=== PATIENT | female | born 1995 | race African-American/Black ===

== ENCOUNTER 2017-12-30 20:15 | Emergency (ER) | payer OTHER ==
[~2017-12-30] VITALS: Ht 154.9 cm; Wt 63.5 kg
[2017-12-30 21:12] LABS: HEMATOCRIT 39.8 % (36.0-46.0); HEMOGLOBIN 13.8 G/DL (11.9-15.5); MCH 30.5 PG (29.0-34.0); MCHC 34.7 G/DL (30.0-36.0); MCV 88.1 FL (83-99); PLATELET COUNT 241 K/uL (156-360); RBC DIS.WIDTH-CV 13.2 % (11.8-14.6); RBC DIS.WIDTH-SD 42.3 % (39-53); RED BLOOD COUNT 4.52 M/uL (3.80-5.20); WHITE BLOOD COUNT 10.2 K/uL (4.1-10.2)
[2017-12-30 21:18] LABS: ALBUMIN 4.5 g/dL (3.2-4.8); CHLORIDE 104 mEq/L (99-109); POTASSIUM 3.9 mEq/L (3.7-5.4); SODIUM 139 mEq/L (136-147)
[2017-12-30 21:21] LABS: GLUCOSE 86 mg/dL (70-99); TOTAL PROTEIN 7.3 g/dL (6.4-8.3)
[2017-12-30 21:22] LABS: TOTAL BILIRUBIN 0.5 mg/dL (0.0-1.0)
[2017-12-30 21:24] LABS: ALKALINE PHOSPHATASE 63 IU/L (3-129); CREATININE 0.8 mg/dL (0.6-1.3); GFR ESTIMATE (CALCULATED) > 59 mL/min/
[2017-12-30 21:25] LABS: UREA NITROGEN (BUN) 9 mg/dL (9-23)
[2017-12-30 21:26] LABS: AST (GOT) 19 IU/L (2-34)
[2017-12-30 21:27] LABS: ALT (GPT) 8 IU/L (3-49)
[2017-12-30 21:28] LABS: LIPASE 41 U/L (1.0-51.0)
[2017-12-30 21:33] LABS: QUANTITATIVE HCG < 4.0 MIU/ML
[2017-12-30 21:47] LABS: APPEARANCE CLEAR ((CLEAR)); BILIRUBIN NEGATIVE; BLOOD NEGATIVE; COLOR YELLOW ((YELLOW)); GLUCOSE (STRIP) NEGATIVE; KETONES 5; LEUKOCYTES TRACE; NITRITE NEGATIVE; PROTEIN (STRIP) NEGATIVE; SPECIFIC GRAVITY 1.016 (1.000-1.030); UROBILINOGEN 0.2 MG/DL (0.2-1.0)
[2017-12-30 21:50] LABS: BACTERIA NONE SEEN /HPF; EPITHELIAL CELLS 1+ /HPF; MUCUS TRACE /LPF; RED BLOOD CELLS 0-5 /HPF (0-5); UCUL ADDED? NO; WHITE BLOOD CELLS 0-5 /HPF (0-5)
[2017-12-30] MEDS ORDERED: DEXILANT30 MG PO (22:21)
[2017-12-30 22:31] VITALS: BP 125/71
== END 2017-12-30 22:31 | disposition home or self-care (01) ==
LOC: EME 20:15
DX: K27.9 Peptic ulcer, site unspecified, unspecified as acute or chronic, without hemorrhage or perforation (principal); R10.13 Epigastric pain; F17.200 Nicotine dependence, unspecified, uncomplicated
CPT/HCPCS: 76705; 80053; 81003; 83690; 84702; 85027; 99281; 99284

== ENCOUNTER 2018-02-22 17:02 | Emergency (ER) | payer OTHER ==
[~2018-02-22 17:02] MED LIST: DEXILANT30 MG PO
[2018-02-23] MEDS ORDERED: TYLENOL WITH C1 EACH PO (08:03)
== END 2018-02-22 17:12 | disposition left against medical advice (07) ==
LOC: EME 17:02
DX: S69.91XA Unspecified injury of right wrist, hand and finger(s), initial encounter (principal); Z53.21 Procedure and treatment not carried out due to patient leaving prior to being seen by health care provider

== ENCOUNTER 2018-02-23 05:27 | Emergency (ER) | payer OTHER ==
[~2018-02-23] VITALS: Ht 154.9 cm; Wt 62.9 kg
[2018-02-23] MEDS ORDERED: TYLENOL WITH C1 EACH PO (08:03)
[2018-02-23 08:10] VITALS: BP 95/65
== END 2018-02-23 08:13 | disposition home or self-care (01) ==
LOC: EME 05:27
DX: S60.211A Contusion of right wrist, initial encounter (principal); S60.221A Contusion of right hand, initial encounter; Y09 Assault by unspecified means; F17.200 Nicotine dependence, unspecified, uncomplicated
CPT/HCPCS: 73110; 73130; 99281; 99283

== ENCOUNTER 2018-03-14 15:17 | Emergency (ER) | payer OTHER ==
[~2018-03-14] VITALS: Ht 154.9 cm; Wt 62.6 kg
[~2018-03-14 15:17] MED LIST changes: +TYLENOL WITH C1 EACH PO
[2018-03-14 16:17] LABS: BASOPHIL (%) 0.5 % (0-1); EOSINOPHIL (%) 1.2 % (0-5); EOSINOPHIL COUNT 0.1 K/uL (0-0.3); HEMATOCRIT 40.8 % (36.0-46.0); HEMOGLOBIN 14.3 G/DL (11.9-15.5); IMMATURE GRANULOCYTE (%) 0.4 % (0.0-0.7); LYMPHOCYTE (%) 26.6 % (15-42); MCH 31.1 PG (29.0-34.0); MCV 88.7 FL (83-99); MONOCYTE (%) 5.9 % (3-12); MONOCYTE COUNT 0.5 K/uL (0-0.8); NEUTROPHIL (%) 65.4 % (45-76); PLATELET COUNT 219 K/uL (156-360); RBC DIS.WIDTH-CV 11.9 % (11.8-14.6); WHITE BLOOD COUNT 7.6 K/uL (4.1-10.2)
[2018-03-14 16:33] LABS: ALBUMIN 4.6 g/dL (3.2-4.8); CHLORIDE 106 mEq/L (99-109); POTASSIUM 4.2 mEq/L (3.7-5.4); SODIUM 140 mEq/L (136-147)
[2018-03-14 16:36] LABS: GLUCOSE 84 mg/dL (70-99); TOTAL PROTEIN 7.2 g/dL (6.4-8.3)
[2018-03-14 16:38] LABS: TOTAL BILIRUBIN 0.9 mg/dL (0.0-1.0)
[2018-03-14 16:39] LABS: ALKALINE PHOSPHATASE 67 IU/L (3-129); CREATININE 0.8 mg/dL (0.6-1.3); GFR ESTIMATE (CALCULATED) > 59 mL/min/
[2018-03-14 16:40] LABS: UREA NITROGEN (BUN) 10 mg/dL (9-23)
[2018-03-14 16:41] LABS: AST (GOT) 18 IU/L (2-34)
[2018-03-14 16:42] LABS: ALT (GPT) 13 IU/L (3-49)
[2018-03-14 16:45] LABS: APPEARANCE SL.HAZY ((CLEAR)); BILIRUBIN NEGATIVE; BLOOD NEGATIVE; COLOR YELLOW ((YELLOW)); GLUCOSE (STRIP) NEGATIVE; KETONES 5; LEUKOCYTES TRACE; NITRITE NEGATIVE; PROTEIN (STRIP) 30; SPECIFIC GRAVITY 1.029 (1.000-1.030)
[2018-03-14 16:48] LABS: QUANTITATIVE HCG 101.3 MIU/ML
[2018-03-14 16:49] LABS: BACTERIA NONE SEEN /HPF; EPITHELIAL CELLS 2+ /HPF; MUCUS 2+ /LPF; RED BLOOD CELLS 0-5 /HPF (0-5); WHITE BLOOD CELLS 0-5 /HPF (0-5)
[2018-03-14 17:37] LABS: LIPASE 21 U/L (1.0-51.0)
[2018-03-14] MEDS ORDERED: ZOFRAN ODT4 MG PO (17:43)
[2018-03-14 17:52] VITALS: BP 142/89
== END 2018-03-14 17:53 | disposition home or self-care (01) ==
LOC: EME 15:17
PROVIDERS: Nurse Practitioner Family
DX: O99.89 Other specified diseases and conditions complicating pregnancy, childbirth and the puerperium (principal); K92.1 Melena; O21.9 Vomiting of pregnancy, unspecified; O99.281 Endocrine, nutritional and metabolic diseases complicating pregnancy, first trimester; E86.0 Dehydration; R10.11 Right upper quadrant pain; R10.13 Epigastric pain; O99.331 Smoking (tobacco) complicating pregnancy, first trimester; F17.200 Nicotine dependence, unspecified, uncomplicated; Z87.19 Personal history of other diseases of the digestive system; Z3A.00 Weeks of gestation of pregnancy not specified
CPT/HCPCS: 80053; 81003; 83690; 84702; 85025; 99281; 99284

== ENCOUNTER 2018-03-16 04:00 | Emergency (ER) | payer OTHER ==
[~2018-03-16] VITALS: Ht 154.9 cm; Wt 64.2 kg
[~2018-03-16 04:00] MED LIST changes: +ZOFRAN ODT4 MG PO
[2018-03-16 04:40] LABS: HEMATOCRIT 40.6 % (36.0-46.0); HEMOGLOBIN 13.9 G/DL (11.9-15.5); MCH 30.8 PG (29.0-34.0); MCHC 34.2 G/DL (30.0-36.0); PLATELET COUNT 217 K/uL (156-360); RBC DIS.WIDTH-SD 39.8 % (39-53); RED BLOOD COUNT 4.51 M/uL (3.80-5.20); WHITE BLOOD COUNT 7.6 K/uL (4.1-10.2)
[2018-03-16 04:52] LABS: CHLORIDE 108 mEq/L (99-109); SODIUM 140 mEq/L (136-147)
[2018-03-16 04:53] LABS: GLUCOSE 88 mg/dL (70-99)
[2018-03-16 04:57] LABS: CREATININE 0.8 mg/dL (0.6-1.3); GFR ESTIMATE (CALCULATED) > 59 mL/min/
[2018-03-16 04:58] LABS: UREA NITROGEN (BUN) 11 mg/dL (9-23)
[2018-03-16 05:05] LABS: QUANTITATIVE HCG 176.1 MIU/ML
[2018-03-16 06:29] VITALS: BP 113/84
== END 2018-03-16 06:29 | disposition home or self-care (01) ==
LOC: EME 04:00
PROVIDERS: Emergency Medicine
DX: O20.9 Hemorrhage in early pregnancy, unspecified (principal); R10.84 Generalized abdominal pain; Z3A.01 Less than 8 weeks gestation of pregnancy; Z87.891 Personal history of nicotine dependence
CPT/HCPCS: 76801; 80048; 84702; 85027; 86900; 86901; 99281; 99283